=== PATIENT | male | born 1975 | race Caucasian/White ===

== ENCOUNTER 2022-05-29 01:17 | Emergency (ER) | payer MEDICAID ==
[~2022-05-29] VITALS: Ht 172.7 cm; Wt 69.0 kg
[2022-05-29 01:22] VITALS: BP 125/76
[2022-05-29] MEDS ORDERED: LIDOCAINE HCL/EPINEPHRINE 1%-EPI 1:100,000 20 ML VIAL INFIL ONE (02:30)
[2022-05-29] MEDS ORDERED: HYDROCODONE/ACETAMINOPHEN 5/325MG TABLET PO ONE (02:30)
[2022-05-29] MEDS ORDERED: TETANUS, DIPHTHERIA, PERTUSSIS VAC/PF 0.5ML (>10YR OLD) IM ONE (02:30)
[2022-05-29] MEDS ORDERED: BACITRACIN ZINC OINT UDPKT TOP ONE (02:30)
[2022-05-29] MEDS ORDERED: KETOROLAC 60MG/2ML VIAL IM STA (02:59)
[2022-05-29] MEDS ORDERED: LIDOCAINE HCL 1% 10 MG/ML 10ML VIAL INJ NR (05:00)
[2022-05-29] MEDS ORDERED: LIDOCAINE HCL 1% 20ML VIAL (Pyxis) INJ INFIL ONE (05:00)
[2022-05-29] MEDS ORDERED: CEPHALEXIN 250MG CAPSULE PO NR (05:15)
[2022-05-29] MEDS ORDERED: CEPH500C2 MT (05:27)
[2022-05-29] MEDS ORDERED: IBUP-2029 PO (05:27)
== END 2022-05-29 06:24 | disposition home or self-care (01) ==
LOC: ER 01:17
DX: S86.022A Laceration of left Achilles tendon, initial encounter (principal); W26.8XXA Contact with other sharp object(s), not elsewhere classified, initial encounter; Y93.89 Activity, other specified; Y92.018 Other place in single-family (private) house as the place of occurrence of the external cause
CPT/HCPCS: 73610; 90471; 90715; 96372; 99284; J1885; J3490; Z7610

== ENCOUNTER 2022-07-06 15:27 | Emergency (ER) | payer MEDICAID, OTHER ==
[~2022-07-06] VITALS: Ht 167.6 cm; Wt 68.0 kg
[~2022-07-06 15:27] MED LIST: CEPH500C2 MT; IBUP-2029 PO
[2022-07-06] MEDS ORDERED: VANCOMYCIN 1G PREMIX 200 ML IV ONE (16:00)
[2022-07-06] MEDS ORDERED: PIPERACILLIN/TAZ 3.375G PREMIX 50 ML IV ONE (16:00)
[2022-07-06 17:15] LABS: BASOPHILS % 0.7 % (0.0-2.0); EOSINOPHILS % 3.9 % (0.0-5.0); LYMPHOCYTES % 31.7 % (20.0-50.0); MEAN CORPUSCULAR HEMOGLOBIN 30.5 pg (28.0-32.0); MEAN CORPUSCULAR VOLUME 91.8 fL (80.0-94.0); MEAN PLATELET VOLUME 8.8 fl (7.4-10.4); MONOCYTES % 10.2 % (2.0-8.0); NEUTROPHILS % 53.5 % (40.0-76.0); PLATELET 297 x1000/uL (130-400); RED BLOOD CELL COUNT 4.57 mill/uL (4.7-6.1); RED CELL DISTRIBUTION WIDTH 12.9 % (11.6-14.6)
[2022-07-06 17:23] LABS: INR 0.9; PROTHROMBIN TIME 10.2 sec (9.6-11.0)
[2022-07-06 17:24] LABS: CHLORIDE 106 mEq/L (98-107)
[2022-07-06 19:13] VITALS: BP 128/89
== END 2022-07-06 19:16 ==
LOC: ER 15:27 → CANBEDREQ 07-08 09:37
DX: L03.116 Cellulitis of left lower limb (principal); T81.30XA Disruption of wound, unspecified, initial encounter; X58.XXXA Exposure to other specified factors, initial encounter; Y93.9 Activity, unspecified; Y92.9 Unspecified place or not applicable
CPT/HCPCS: 36415; 80053; 85025; 85610; 87040; 96365; 96375; 99284; J2543; J3370; Z7610